=== PATIENT | female | born 1960 | race American Indian/Alaskan Native ===

== ENCOUNTER 2017-07-18 12:35 | Outpatient (CLI) | payer OTHER ==
[2017-07-18] MEDS ORDERED: XYLOCAINE TOPICAL 4% TP ONE ×2 (14:20)
== END 2017-07-18 12:36 | disposition home or self-care (01) ==
LOC: WOUND 12:35
PROVIDERS: ATTEND Surgery
DX: T81.89XD Other complications of procedures, not elsewhere classified, subsequent encounter (principal); I10 Essential (primary) hypertension; E05.90 Thyrotoxicosis, unspecified without thyrotoxic crisis or storm; Y83.8 Other surgical procedures as the cause of abnormal reaction of the patient, or of later complication, without mention of misadventure at the time of the procedure
CPT/HCPCS: 11042; G0463

== ENCOUNTER 2017-07-24 12:35 | Outpatient (CLI) | payer OTHER ==
[2017-07-24] MEDS ORDERED: XYLOCAINE TOPICAL 4% TP ONE (13:34)
[2017-07-24] MEDS ORDERED: NACL 0.9% 500 ML IR ONE (14:50)
[2017-07-24] MEDS ORDERED: NACL 0.9% IR ONE (16:36)
== END 2017-07-24 12:36 | disposition home or self-care (01) ==
LOC: WOUND 12:35
PROVIDERS: ATTEND Surgery
DX: L02.211 Cutaneous abscess of abdominal wall (principal); I10 Essential (primary) hypertension
CPT/HCPCS: 97605

== ENCOUNTER 2017-07-27 13:41 | Outpatient (CLI) | payer OTHER | END 2017-07-27 13:42 | disposition home or self-care (01) | LOC: WOUND 13:41 | PROVIDERS: ATTEND Podiatrist | DX: L02.211 Cutaneous abscess of abdominal wall (principal); I10 Essential (primary) hypertension; E05.90 Thyrotoxicosis, unspecified without thyrotoxic crisis or storm | CPT/HCPCS: 97605 ==

== ENCOUNTER 2017-07-30 14:03 | Outpatient (CLI) | payer OTHER | END 2017-07-30 14:04 | disposition home or self-care (01) | LOC: WOUND 14:03 | PROVIDERS: ATTEND Internal Medicine | DX: L02.211 Cutaneous abscess of abdominal wall (principal); I10 Essential (primary) hypertension; E05.90 Thyrotoxicosis, unspecified without thyrotoxic crisis or storm | CPT/HCPCS: 97605; G0463; 99213 ==

== ENCOUNTER 2017-08-01 12:58 | Outpatient (CLI) | payer OTHER ==
[2017-08-01] MEDS ORDERED: XYLOCAINE TOPICAL 4% TP ONE ×2 (13:28→13:33)
== END 2017-08-01 12:59 | disposition home or self-care (01) ==
LOC: WOUND 12:58
PROVIDERS: ATTEND Surgery
DX: L02.211 Cutaneous abscess of abdominal wall (principal); I10 Essential (primary) hypertension; E03.9 Hypothyroidism, unspecified
CPT/HCPCS: 97605; G0463; 99214

== ENCOUNTER 2017-08-03 13:41 | Outpatient (CLI) | payer OTHER | END 2017-08-03 13:42 | disposition home or self-care (01) | LOC: WOUND 13:41 | PROVIDERS: ATTEND Podiatrist | DX: L02.211 Cutaneous abscess of abdominal wall (principal); I10 Essential (primary) hypertension; E05.90 Thyrotoxicosis, unspecified without thyrotoxic crisis or storm | CPT/HCPCS: 97605 ==

== ENCOUNTER 2017-08-06 13:54 | Outpatient (CLI) | payer OTHER | END 2017-08-06 13:55 | disposition home or self-care (01) | LOC: WOUND 13:54 | PROVIDERS: ATTEND Internal Medicine | DX: L02.211 Cutaneous abscess of abdominal wall (principal); I10 Essential (primary) hypertension; E05.90 Thyrotoxicosis, unspecified without thyrotoxic crisis or storm | CPT/HCPCS: 97605 ==

== ENCOUNTER 2017-08-10 11:24 | Outpatient (CLI) | payer OTHER | END 2017-08-10 11:25 | disposition home or self-care (01) | LOC: WOUND 11:24 | PROVIDERS: ATTEND Podiatrist | DX: L02.211 Cutaneous abscess of abdominal wall (principal); I10 Essential (primary) hypertension; E05.90 Thyrotoxicosis, unspecified without thyrotoxic crisis or storm | CPT/HCPCS: 97605 ==

== ENCOUNTER 2017-08-13 13:40 | Outpatient (CLI) | payer OTHER | END 2017-08-13 13:41 | disposition home or self-care (01) | LOC: WOUND 13:40 | PROVIDERS: ATTEND Internal Medicine | DX: L02.211 Cutaneous abscess of abdominal wall (principal); E05.90 Thyrotoxicosis, unspecified without thyrotoxic crisis or storm; I10 Essential (primary) hypertension | CPT/HCPCS: 97605; G0463 ==

== ENCOUNTER 2017-08-15 13:07 | Outpatient (CLI) | payer OTHER ==
[2017-08-15] MEDS ORDERED: XYLOCAINE TOPICAL 2% ONE (13:23)
[2017-08-15] MEDS ORDERED: XYLOCAINE TOPICAL 2% TP ONE (14:00)
== END 2017-08-15 13:08 | disposition home or self-care (01) ==
LOC: WOUND 13:07
PROVIDERS: ATTEND Surgery
DX: L89.154 Pressure ulcer of sacral region, stage 4 (principal); G82.20 Paraplegia, unspecified
CPT/HCPCS: 11042; 97605; G0463; 99214

== ENCOUNTER 2017-08-22 12:54 | Outpatient (CLI) | payer OTHER ==
[2017-08-22] MEDS ORDERED: XYLOCAINE TOPICAL 4% TP ONE (13:27)
== END 2017-08-22 12:55 | disposition home or self-care (01) ==
LOC: WOUND 12:54
PROVIDERS: ATTEND Surgery
DX: L02.211 Cutaneous abscess of abdominal wall (principal); I10 Essential (primary) hypertension; E05.90 Thyrotoxicosis, unspecified without thyrotoxic crisis or storm
CPT/HCPCS: 99213; G0463

== ENCOUNTER 2017-08-29 13:06 | Outpatient (CLI) | payer OTHER ==
[2017-08-29] MEDS ORDERED: XYLOCAINE TOPICAL 4% TP ONE ×2 (13:39→13:47)
== END 2017-08-29 13:07 | disposition home or self-care (01) ==
LOC: WOUND 13:06
PROVIDERS: ATTEND Surgery
DX: L02.211 Cutaneous abscess of abdominal wall (principal); I10 Essential (primary) hypertension; E03.9 Hypothyroidism, unspecified

== ENCOUNTER 2017-09-05 13:00 | Outpatient (CLI) | payer OTHER ==
[2017-09-05] MEDS ORDERED: XYLOCAINE TOPICAL 2% TP ONE (13:28)
[2017-09-05] MEDS ORDERED: XYLOCAINE TOPICAL 2% ONE (13:32)
== END 2017-09-05 13:01 | disposition home or self-care (01) ==
LOC: WOUND 13:00
PROVIDERS: ATTEND Surgery
DX: L02.211 Cutaneous abscess of abdominal wall (principal); I10 Essential (primary) hypertension; E05.90 Thyrotoxicosis, unspecified without thyrotoxic crisis or storm

== ENCOUNTER 2017-09-26 08:40 | Outpatient (CLI) | payer OTHER | END 2017-09-26 08:41 | disposition home or self-care (01) | LOC: WOUND 08:40 | PROVIDERS: ATTEND Surgery | DX: L02.211 Cutaneous abscess of abdominal wall (principal); I10 Essential (primary) hypertension; E05.90 Thyrotoxicosis, unspecified without thyrotoxic crisis or storm | CPT/HCPCS: 99213; G0463 ==